=== PATIENT | male | born 1985 | race Caucasian/White ===

== ENCOUNTER 2018-09-18 17:25 | Emergency (ER) | payer OTHER ==
[~2018-09-18] VITALS: Ht 180.3 cm; Wt 86.2 kg
[~2018-09-18 17:25] MED LIST: CEPHALEXIN500 M1 PO; CIPRO500 MG PO; COUMADIN5 M2 PO; DARVOCET A500 51 TAB PO; GENTACIDIN5 ML NAS; MOTRIN800 MG PO; NKHM; OCUFLOX 0.3% 5 M5 ML OPH; TRAMADOL HCL50 MG PO; VOLTAREN 0.1%2.5 ML OPH
[2018-09-18 18:24] LABS: BILIRUBIN NEGATIVE (NEGATIVE); BLOOD NEGATIVE (NEGATIVE); CLARITY CLEAR (CLEAR); COLOR YELLOW (YELLOW); GLUCOSE NEGATIVE (NEGATIVE); KETONE NEGATIVE (NEGATIVE); LEUKO ESTERASE NEGATIVE (NEGATIVE); NITRITE NEGATIVE (NEGATIVE); UROBILINOGEN 0.2 E.U./dl (0.2-1.0)
[2018-09-18 18:39] LABS: BACTERIA 1+; EPITHELIAL CELLS 0-2; MUCOUS TRACE; RBC 0-2 rbc/hpf (0-2)
[2018-09-19] MEDS ORDERED: FLAGYL500 MG PO (14:44)
[2018-09-30] MEDS ORDERED: FLAGYL500 MG PO (01:54)
[2018-10-30] MEDS ORDERED: CIPRO500 MG PO (22:04)
== END 2018-09-18 18:20 | disposition home or self-care (01) ==
LOC: ED 17:25
PROVIDERS: Physician Assistant
DX: Z11.3 Encounter for screening for infections with a predominantly sexual mode of transmission (principal); R36.9 Urethral discharge, unspecified

== ENCOUNTER 2019-04-19 17:55 | Emergency (ER) | payer OTHER ==
[~2019-04-19] VITALS: Ht 180.3 cm; Wt 88.5 kg
[~2019-04-19 17:55] MED LIST changes: +FLAGYL500 MG PO
[2019-04-19 18:34] LABS: BILIRUBIN NEGATIVE (NEGATIVE); BLOOD NEGATIVE (NEGATIVE); CLARITY SL CLOUDY (CLEAR); COLOR YELLOW (YELLOW); GLUCOSE NEGATIVE (NEGATIVE); KETONE 1+ (NEGATIVE); LEUKO ESTERASE NEGATIVE (NEGATIVE); NITRITE NEGATIVE (NEGATIVE); UROBILINOGEN 0.2 E.U./dl (0.2-1.0)
[2019-04-19 18:48] LABS: EPITHELIAL CELLS 0-2; MUCOUS 1+
[2019-04-19] MEDS ORDERED: FLAGYL500 MG PO (19:07)
== END 2019-04-19 19:20 | disposition home or self-care (01) ==
LOC: ED 17:55
PROVIDERS: Physician Assistant
DX: N48.89 Other specified disorders of penis (principal); Z20.2 Contact with and (suspected) exposure to infections with a predominantly sexual mode of transmission; Z79.2 Long term (current) use of antibiotics; Z79.899 Other long term (current) drug therapy

== ENCOUNTER 2019-08-27 18:02 | Emergency (ER) | payer OTHER ==
[~2019-08-27] VITALS: Ht 180.3 cm; Wt 88.5 kg
[2019-08-27 19:11] LABS: COLOR YELLOW (YELLOW)
[2019-08-27 19:12] LABS: BILIRUBIN NEGATIVE (NEGATIVE); BLOOD TRACE-INTACT (NEGATIVE); CLARITY CLEAR (CLEAR); GLUCOSE NEGATIVE (NEGATIVE); KETONE NEGATIVE (NEGATIVE); SPECIFIC GRAVITY 1.015 (1.005-1.030)
[2019-08-27 19:13] LABS: LEUKO ESTERASE TRACE (NEGATIVE); NITRITE NEGATIVE (NEGATIVE); UROBILINOGEN 0.2 E.U./dl (0.2-1.0)
[2019-08-27 19:17] LABS: BACTERIA TRACE
== END 2019-08-27 20:06 | disposition home or self-care (01) ==
LOC: ED 18:02
PROVIDERS: Nurse Practitioner Family
DX: R36.9 Urethral discharge, unspecified (principal); R30.9 Painful micturition, unspecified; Z20.2 Contact with and (suspected) exposure to infections with a predominantly sexual mode of transmission

== ENCOUNTER 2019-09-28 12:23 | Emergency (ER) | payer OTHER ==
[~2019-09-28] VITALS: Ht 180.3 cm; Wt 90.7 kg
[2019-09-28 13:14] LABS: BASO % 0.3 % (0.0-1.0); EOS # 0.1 10*3/uL (0.0-0.4); EOS % 0.9 % (1.0-4.0); HEMATOCRIT 48.9 % (42.0-52.0); LYMPH # 2.1 10*3/uL (1.3-4.4); LYMPH % 14.2 % (27.0-41.0); MEAN CELL VOLUME 95.3 fl (80.0-94.0); MEAN CORPUSCULAR HGB 31.8 pg (27.0-31.0); MEAN CORPUSCULAR HGB CONC 33.3 g/dl (33.0-37.0); MEAN PLATELET VOLUME 9.9 fl (9.6-12.3); MONO # 1.2 10*3/uL (0.1-1.0); MONO % 8.3 % (3.0-9.0); NEUT # 11.2 10*3/uL (2.3-7.9); PLATELET COUNT AUTOMATED 307 10*3/uL (130-400); RED BLOOD COUNT 5.13 10*6/uL (4.50-5.90); RED CELL DISTRI WIDTH 12.4 % (0-14.5); WHITE BLOOD COUNT 14.8 10*3/uL (4.8-10.8)
[2019-09-28 13:25] LABS: ACT PARTIAL THROMBO TIME 23.9 SECONDS (20.0-32.1)
[2019-09-28 13:29] LABS: ALBUMIN 4.1 gm/dl (3.1-4.5); ALKALINE PHOSPHATASE 85 U/L (45-117); BUN 18 mg/dl (7-24); CHLORIDE 105 mmol/L (98-107); CREATININE 1.19 mg/dL (0.70-1.30); LIPASE 95 U/L (73-393); POTASSIUM 3.6 mmol/L (3.5-5.1); SGOT/AST 23 IU/L (3-35); SGPT/ALT 31 U/L (12-78); SODIUM 138 mmol/L (136-145); TOTAL PROTEIN 8.7 gm/dL (6.4-8.2); TROPONIN I < 0.015 ng/ml (<0.045)
[2019-09-28] MEDS ORDERED: LOVENOX100 MG/1 M SC (23:19)
[2019-09-28] MEDS ORDERED: TRAMADOL HCL50 MG PO (23:20)
== END 2019-09-28 14:11 | disposition left against medical advice (07) ==
LOC: ED 12:23
PROVIDERS: Emergency Medicine
DX: I82.401 Acute embolism and thrombosis of unspecified deep veins of right lower extremity (principal); Z79.899 Other long term (current) drug therapy

== ENCOUNTER 2019-09-28 22:34 | Emergency (ER) | payer OTHER ==
[~2019-09-28] VITALS: Ht 180.3 cm; Wt 68.0 kg
[2019-09-28] MEDS ORDERED: LOVENOX100 MG/1 M SC (23:19)
[2019-09-28] MEDS ORDERED: TRAMADOL HCL50 MG PO (23:20)
== END 2019-09-28 23:45 | disposition home or self-care (01) ==
LOC: ED 22:34
DX: I82.401 Acute embolism and thrombosis of unspecified deep veins of right lower extremity (principal); Z79.899 Other long term (current) drug therapy

== ENCOUNTER 2020-03-31 17:42 | Emergency (ER) | payer OTHER ==
[~2020-03-31] VITALS: Ht 180.3 cm; Wt 88.5 kg
[~2020-03-31 17:42] MED LIST changes: +LOVENOX100 MG/1 M SC
[2020-03-31 18:57] LABS: BILIRUBIN Negative (Negative); BLOOD Negative (Negative); CLARITY Clear (Clear); COLOR Yellow (Yellow); GLUCOSE Negative (Negative); KETONE Negative (Negative); LEUKO ESTERASE Negative (Negative); NITRITE Negative (Negative); PH 6.5 (4.5-8.0); UROBILINOGEN 0.2 E.U./dl (0.0-1.0)
[2020-03-31 19:03] LABS: EPITHELIAL CELLS 0-2; RBC 0-2 rbc/hpf (0-2); WBC 0-2 wbc/hpf (0-5)
[2020-03-31 19:04] LABS: BACTERIA 1+; MUCOUS TRACE
== END 2020-03-31 21:51 ==
LOC: ED 17:42
PROVIDERS: Physician Assistant
DX: R30.0 Dysuria (principal); Z79.899 Other long term (current) drug therapy

== ENCOUNTER → 2020-06-07 | Outpatient (CLI) | payer OTHER | END | disposition home or self-care (01) | LOC: CT 05-31 09:00 | PROVIDERS: ATTEND Urology | DX: I87.8 Other specified disorders of veins (principal); I86.2 Pelvic varices; R10.9 Unspecified abdominal pain ==

== ENCOUNTER 2022-04-04 16:19 | Emergency (ER) | payer OTHER ==
[~2022-04-04] VITALS: Wt 95.3 kg
[2022-04-04] MEDS ORDERED: HYDROXYZINE PAM50 MG PO (16:39)
[2022-04-04] MEDS ORDERED: WARFARIN SODIUM1 MG PO (16:39)
[2022-04-04] MEDS ORDERED: BUPROPION HYDR150 M1 PO (16:40)
[2022-04-04 17:12] LABS: INTERNATIONAL NORM RATIO 1.2 (2.0-3.5)
[2022-04-04 17:13] LABS: ALKALINE PHOSPHATASE 134 U/L (45-117); BUN 17 mg/dl (7-24); CHLORIDE 107 mmol/L (98-107); CREATININE 1.03 mg/dL (0.70-1.30); POTASSIUM 3.6 mmol/L (3.5-5.1); SGOT/AST 36 IU/L (3-35); SGPT/ALT 41 U/L (12-78); SODIUM 140 mmol/L (136-145); TOTAL PROTEIN 8.8 gm/dL (6.4-8.2)
[2022-04-04 17:18] LABS: ETHYL ALCOHOL < 3.0 mg/dl (<3)
[2022-04-04 17:33] LABS: BASO # 0.1 10*3/uL (0.0-0.1); BASO % 0.6 % (0.0-1.0); EOS % 0.1 % (1.0-4.0); HEMATOCRIT 53.1 % (42.0-52.0); LYMPH # 1.4 10*3/uL (1.3-4.4); LYMPH % 16.3 % (27.0-41.0); MEAN CELL VOLUME 95.8 fl (80.0-94.0); MEAN CORPUSCULAR HGB 33.2 pg (27.0-31.0); MEAN CORPUSCULAR HGB CONC 34.7 g/dl (33.0-37.0); MONO # 0.7 10*3/uL (0.1-1.0); NEUT # 6.6 10*3/uL (2.3-7.9); NEUT % 74.7 % (47.0-73.0); PLATELET COUNT AUTOMATED 259 10*3/uL (130-400); RED BLOOD COUNT 5.54 10*6/uL (4.50-5.90); RED CELL DISTRI WIDTH 14.5 % (0-14.5); WHITE BLOOD COUNT 8.8 10*3/uL (4.8-10.8)
[2022-04-04 18:26] LABS: URINE AMPHETAMINES < 1000 (1000ng/ml); URINE BARBITURATES < 200 (200ng/ml); URINE BENZODIAZEPINES < 200 (200ng/ml); URINE CANNABINOIDS (THC) < 50 (50ng/ml); URINE COCAINE < 300 (300ng/ml); URINE METHADONE < 300 (300ng/ml); URINE OPIATES < 300 (300ng/ml)
[2022-04-04 18:34] LABS: URINE PHENCYCLIDINE < 25 (25ng/ml)
[2022-04-04] MEDS ORDERED: ATIVAN0.5 MG PO (21:11)
== END 2022-04-04 21:17 | disposition home or self-care (01) ==
LOC: ED 16:19
PROVIDERS: Physician Assistant
DX: R42 Dizziness and giddiness (principal); T43.295A Adverse effect of other antidepressants, initial encounter; R25.1 Tremor, unspecified; R00.0 Tachycardia, unspecified; R06.82 Tachypnea, not elsewhere classified; Z86.718 Personal history of other venous thrombosis and embolism; Z79.899 Other long term (current) drug therapy; Z79.01 Long term (current) use of anticoagulants; Y92.89 Other specified places as the place of occurrence of the external cause

== ENCOUNTER 2022-06-01 14:08 | Emergency (ER) | payer OTHER ==
[~2022-06-01] VITALS: Ht 180.3 cm; Wt 93.0 kg
[~2022-06-01 14:08] MED LIST changes: +ATIVAN0.5 MG PO; +BUPROPION HYDR150 M1 PO; +HYDROXYZINE PAM50 MG PO; +WARFARIN SODIUM1 MG PO
[2022-06-01 17:27] LABS: BASO % 0.3 % (0.0-1.0); HEMATOCRIT 54.2 % (42.0-52.0); LYMPH # 1.5 10*3/uL (1.3-4.4); LYMPH % 12.3 % (27.0-41.0); MEAN CELL VOLUME 94.4 fl (80.0-94.0); MEAN CORPUSCULAR HGB 32.6 pg (27.0-31.0); MEAN CORPUSCULAR HGB CONC 34.5 g/dl (33.0-37.0); MEAN PLATELET VOLUME 9.4 fl (9.6-12.3); MONO # 1.1 10*3/uL (0.1-1.0); MONO % 9.2 % (3.0-9.0); NEUT # 9.2 10*3/uL (2.3-7.9); NEUT % 77.9 % (47.0-73.0); PLATELET COUNT AUTOMATED 299 10*3/uL (130-400); RED BLOOD COUNT 5.74 10*6/uL (4.50-5.90); RED CELL DISTRI WIDTH 14.8 % (0-14.5); WHITE BLOOD COUNT 11.8 10*3/uL (4.8-10.8)
[2022-06-01 17:40] LABS: INTERNATIONAL NORM RATIO 1.1 (2.0-3.5)
[2022-06-01 17:58] LABS: ALKALINE PHOSPHATASE 118 U/L (46-116); BUN 15 mg/dl (9-23); CHLORIDE 100 mmol/L (98-107); CREATININE 0.92 mg/dL (0.70-1.30); LIPASE 31 U/L (12-53); POTASSIUM 3.5 mmol/L (3.4-5.1); SGPT/ALT 54 U/L (10-49); TOTAL PROTEIN 8.7 gm/dL (6.0-8.0)
[2022-06-01 19:12] LABS: BILIRUBIN Negative (Negative); BLOOD 1+ (Negative); CLARITY Clear (Clear); COLOR Yellow (Yellow); GLUCOSE Negative (Negative); KETONE 4+ (Negative); LEUKO ESTERASE Negative (Negative); NITRITE Negative (Negative); PH 5.5 (4.5-8.0); SPECIFIC GRAVITY 1.025 (1.001-1.030)
[2022-06-01 19:19] LABS: URINE AMPHETAMINES Negative (1000ng/ml); URINE BARBITURATES Negative (200ng/ml); URINE BENZODIAZEPINES Negative (200ng/ml); URINE CANNABINOIDS (THC) Negative (50ng/ml); URINE COCAINE Negative (300ng/ml); URINE METHADONE Negative (300ng/ml); URINE OPIATES Negative (300ng/ml); URINE PHENCYCLIDINE Negative (25ng/ml)
[2022-06-01 19:33] LABS: WBC 0-2 wbc/hpf (0-5)
== END 2022-06-01 23:45 | disposition left against medical advice (07) ==
LOC: ED 14:08
PROVIDERS: Physician Assistant
DX: M79.89 Other specified soft tissue disorders (principal)

== ENCOUNTER 2022-06-16 15:01 | Emergency (ER) | payer OTHER ==
[~2022-06-16] VITALS: Wt 92.1 kg
[2022-06-16 16:47] LABS: BILIRUBIN 1+ (Negative); BLOOD Negative (Negative); CLARITY Clear (Clear); COLOR Dark Yellow (Yellow); GLUCOSE Negative (Negative); KETONE Trace (Negative); LEUKO ESTERASE Trace (Negative); NITRITE Negative (Negative); SPECIFIC GRAVITY 1.025 (1.001-1.030)
[2022-06-16 16:59] LABS: BACTERIA 1+; MUCOUS 1+; RBC 0-2 rbc/hpf (0-2)
== END 2022-06-16 15:57 | disposition home or self-care (01) ==
LOC: ED 15:01
PROVIDERS: Nurse Practitioner Family
DX: A64 Unspecified sexually transmitted disease (principal); Z98.890 Other specified postprocedural states

== ENCOUNTER 2023-08-03 17:01 | Inpatient (IN) | payer OTHER ==
[~2023-08-03] VITALS: Ht 180.3 cm; Wt 99.5 kg
[~2023-08-03 17:01] MED LIST changes: +ATIVAN1 MG PO; +LIBRIUM5 MG PO; +ONDANSETRON HYDR4 M1 PO; +PRILOSEC20 M1 PO; +VISTARIL25 MG PO
[2023-08-03 17:07] VITALS: BP 147/100
[2023-08-03] MEDS ORDERED: OMEPRAZOLE40 MG PO (17:12)
[2023-08-03] MEDS ORDERED: SODIUM CHLORIDE 0.9% 1,000 ML IV SCH (17:20)
[2023-08-03] MEDS ORDERED: Thiamine 200 MG/2 ML VIAL IV ONE (17:20)
[2023-08-03] MEDS ORDERED: DIAZEPAM 10 MG/2 ML SYR IV ONE ×3 (17:25→20:45)
[2023-08-03 17:33] LABS: BASO % 0.4 % (0.0-1.0); EOS % 0.2 % (1.0-4.0); HEMATOCRIT 52.4 % (42.0-52.0); LYMPH # 1.2 10*3/uL (1.3-4.4); LYMPH % 12.8 % (27.0-41.0); MEAN CELL VOLUME 93.6 fl (80.0-94.0); MEAN CORPUSCULAR HGB 31.8 pg (27.0-31.0); MEAN PLATELET VOLUME 9.1 fl (9.6-12.3); MONO # 0.9 10*3/uL (0.1-1.0); MONO % 9.5 % (3.0-9.0); NEUT # 7.4 10*3/uL (2.3-7.9); NEUT % 76.9 % (47.0-73.0); PLATELET COUNT AUTOMATED 345 10*3/uL (130-400); RED CELL DISTRI WIDTH 14.4 % (0-14.5); WHITE BLOOD COUNT 9.6 10*3/uL (4.8-10.8)
[2023-08-03] MEDS ORDERED: SODIUM CHLORIDE 0.9% 100 ML BAG IV ONE (17:35)
[2023-08-03] MEDS ORDERED: IOHEXOL 350 MG/ML 100 ML VIAL IV ONE (17:35)
[2023-08-03 17:57] LABS: ALKALINE PHOSPHATASE 141 U/L (46-116); BUN 13 mg/dl (9-23); CHLORIDE 101 mmol/L (98-107); CPK 289 U/L (34-171); LIPASE 35 U/L (12-53); POTASSIUM 3.6 mmol/L (3.4-5.1); SGPT/ALT 237 U/L (5-49)
[2023-08-03 18:05] LABS: ETHYL ALCOHOL < 3.0 mg/dl (<3)
[2023-08-03 18:13] LABS: BILIRUBIN 2+ (Negative); BLOOD 1+ (Negative); CLARITY Cloudy (Clear); COLOR Dark Yellow (Yellow); GLUCOSE Trace (Negative); KETONE 3+ (Negative); LEUKO ESTERASE Trace (Negative); NITRITE Negative (Negative); SPECIFIC GRAVITY >= 1.030 (1.001-1.030)
[2023-08-03 18:20] LABS: URINE AMPHETAMINES Negative (1000ng/ml); URINE BARBITURATES Negative (200ng/ml); URINE BENZODIAZEPINES Negative (200ng/ml); URINE CANNABINOIDS (THC) Negative (50ng/ml); URINE COCAINE Negative (300ng/ml); URINE METHADONE Negative (300ng/ml); URINE OPIATES Negative (300ng/ml); URINE PHENCYCLIDINE Negative (25ng/ml)
[2023-08-03 18:24] LABS: BACTERIA 2+; MUCOUS 3+; YEAST TRACE
[2023-08-03] MEDS ORDERED: Ondansetron Hydrochloride 4 MG/2 ML VIAL IV ONE (19:05)
[2023-08-03] MEDS ORDERED: LORazepam 2 MG TAB PO ONE (22:45)
[2023-08-03] MEDS ORDERED: BISACODYL 5 MG TAB PO PRN (23:00)
[2023-08-03] MEDS ORDERED: ACETAMINOPHEN 325 MG TAB PO PRN (23:00)
[2023-08-03] MEDS ORDERED: Ondansetron Hydrochloride 4 MG/2 ML VIAL IV PRN (23:00)
[2023-08-03] MEDS ORDERED: MULTIVITAMIN CONCENTRATE (IV) 10 ML,Thiamine 100 MG,FOLIC ACID 1 MG in SODIUM CHLORIDE ... IV ONE (23:00)
[2023-08-03] MEDS ORDERED: Acetaminophen/Hydrocodone 5 MG/325 MG TABLET PO PRN (23:00)
[2023-08-03] MEDS ORDERED: Dicyclomine Hydrochloride 20 MG TAB PO PRN (23:00)
[2023-08-03] MEDS ORDERED: Magnesium Hydroxide 30 ML UDC PO PRN (23:00)
[2023-08-03] MEDS ORDERED: hydrOXYzine 50 MG CAP PO PRN (23:00)
[2023-08-03] MEDS ORDERED: METHOCARBAMOL 750 MG TAB PO PRN (23:00)
[2023-08-03 23:08] VITALS: BP 149/104
[2023-08-03] MEDS ORDERED: Labetalol Hydrochloride 20 MG/4 ML SYR IV ONE (23:50)
[2023-08-04] MEDS ORDERED: LORazepam 1 MG TAB PO SCH
[2023-08-04 00:39] VITALS: BP 122/95
[2023-08-04] MEDS ORDERED: SODIUM CHLORIDE 0.9% 10 ML SYR IV SCH (06:00)
[2023-08-04 06:24] LABS: ALKALINE PHOSPHATASE 111 U/L (46-116); BUN 14 mg/dl (9-23); CHLORIDE 105 mmol/L (98-107); POTASSIUM 3.1 mmol/L (3.4-5.1); SGPT/ALT 171 U/L (5-49); TOTAL PROTEIN 7.2 gm/dL (6.0-8.0)
[2023-08-04 06:32] LABS: BASO % 0.4 % (0.0-1.0); EOS % 0.3 % (1.0-4.0); HEMATOCRIT 48.7 % (42.0-52.0); LYMPH # 2.1 10*3/uL (1.3-4.4); LYMPH % 30.1 % (27.0-41.0); MEAN CELL VOLUME 95.7 fl (80.0-94.0); MEAN CORPUSCULAR HGB 31.8 pg (27.0-31.0); MEAN CORPUSCULAR HGB CONC 33.3 g/dl (33.0-37.0); MEAN PLATELET VOLUME 9.5 fl (9.6-12.3); MONO # 1.1 10*3/uL (0.1-1.0); NEUT # 3.8 10*3/uL (2.3-7.9); NEUT % 53.9 % (47.0-73.0); PLATELET COUNT AUTOMATED 279 10*3/uL (130-400); RED BLOOD COUNT 5.09 10*6/uL (4.50-5.90); RED CELL DISTRI WIDTH 14.6 % (0-14.5); WHITE BLOOD COUNT 7.1 10*3/uL (4.8-10.8)
[2023-08-04] MEDS ORDERED: POTASSIUM CHLORIDE 20 MEQ TAB PO ONE (07:40)
[2023-08-04 08:00] VITALS: BP 142/90
[2023-08-04] MEDS ORDERED: Thiamine 200 MG/2 ML VIAL IV ONE (09:29)
[2023-08-04] MEDS ORDERED: MULTIVITAMIN CONCENTRATE (IV) 10 ML VIAL IV ONE (09:29)
[2023-08-04] MEDS ORDERED: FOLIC ACID 50 MG/10 ML VIAL IV ONE (09:29)
[2023-08-04] MEDS ORDERED: FOLIC ACID 1 MG TAB PO SCH (10:00)
[2023-08-04] MEDS ORDERED: Enoxaparin Sodium 40 MG/0.4 ML SYR SC SCH (10:00)
[2023-08-04] MEDS ORDERED: Thiamine 100 MG TAB PO SCH (10:00)
[2023-08-04] MEDS ORDERED: MULTIVITAMIN 1 TAB TAB PO SCH (10:00)
[2023-08-04 12:00] VITALS: BP 135/90
[2023-08-04 16:00] VITALS: BP 190/98
[2023-08-04 17:30] VITALS: BP 138/88
[2023-08-04] MEDS ORDERED: Enoxaparin Sodium 100 MG/ML SYR SC SCH (18:00)
[2023-08-04] MEDS ORDERED: WARFARIN SODIUM 6 MG TAB PO SCH (18:00)
[2023-08-04 20:00] VITALS: BP 139/98
[2023-08-05] VITALS (7 sets, daily range): BP systolic 128–151; BP diastolic 83–109
[2023-08-05] MEDS ORDERED: LORazepam 1 MG TAB PO SCH (02:00)
[2023-08-05] MEDS ORDERED: OMEPRAZOLE 20 MG CAP PO SCH (06:00)
[2023-08-05 06:41] LABS: BASO % 0.5 % (0.0-1.0); EOS # 0.1 10*3/uL (0.0-0.4); EOS % 1.1 % (1.0-4.0); HEMATOCRIT 45.9 % (42.0-52.0); LYMPH # 1.9 10*3/uL (1.3-4.4); LYMPH % 34.2 % (27.0-41.0); MEAN CELL VOLUME 96.8 fl (80.0-94.0); MEAN CORPUSCULAR HGB 32.7 pg (27.0-31.0); MEAN CORPUSCULAR HGB CONC 33.8 g/dl (33.0-37.0); MEAN PLATELET VOLUME 9.3 fl (9.6-12.3); MONO # 0.7 10*3/uL (0.1-1.0); MONO % 11.6 % (3.0-9.0); NEUT % 52.4 % (47.0-73.0); PLATELET COUNT AUTOMATED 226 10*3/uL (130-400); RED BLOOD COUNT 4.74 10*6/uL (4.50-5.90); RED CELL DISTRI WIDTH 14.3 % (0-14.5); WHITE BLOOD COUNT 5.7 10*3/uL (4.8-10.8)
[2023-08-05 07:04] LABS: ALKALINE PHOSPHATASE 109 U/L (46-116); BUN 11 mg/dl (9-23); CHLORIDE 105 mmol/L (98-107); POTASSIUM 3.8 mmol/L (3.4-5.1); SGPT/ALT 156 U/L (5-49); TOTAL PROTEIN 7.1 gm/dL (6.0-8.0)
[2023-08-05] MEDS ORDERED: CEPHALEXIN 500 MG CAP PO SCH (12:00)
[2023-08-06] VITALS: BP 141/98
[2023-08-06] MEDS ORDERED: LORazepam 1 MG TAB PO PRN (04:00)
[2023-08-06 06:15] LABS: BUN 10 mg/dl (9-23); CHLORIDE 104 mmol/L (98-107); POTASSIUM 3.6 mmol/L (3.4-5.1)
[2023-08-06 07:07] LABS: BASO % 0.6 % (0.0-1.0); EOS # 0.1 10*3/uL (0.0-0.4); EOS % 1.7 % (1.0-4.0); LYMPH % 29.5 % (27.0-41.0); MEAN CELL VOLUME 97.2 fl (80.0-94.0); MEAN CORPUSCULAR HGB 31.9 pg (27.0-31.0); MEAN CORPUSCULAR HGB CONC 32.9 g/dl (33.0-37.0); MEAN PLATELET VOLUME 9.8 fl (9.6-12.3); MONO # 0.7 10*3/uL (0.1-1.0); MONO % 10.7 % (3.0-9.0); NEUT % 57.2 % (47.0-73.0); PLATELET COUNT AUTOMATED 258 10*3/uL (130-400); RED BLOOD COUNT 5.04 10*6/uL (4.50-5.90); RED CELL DISTRI WIDTH 14.1 % (0-14.5); WHITE BLOOD COUNT 6.9 10*3/uL (4.8-10.8)
[2023-08-06 08:00] VITALS: BP 160/90
[2023-08-06 12:00] VITALS: BP 150/82
[2023-08-06 16:00] VITALS: BP 143/102; BP 146/71
[2023-08-06 17:00] VITALS: BP 150/88
[2023-08-06 20:00] VITALS: BP 151/107
[2023-08-07] VITALS: BP 142/107
[2023-08-07 06:39] LABS: BUN 13 mg/dl (9-23); CHLORIDE 105 mmol/L (98-107); POTASSIUM 3.8 mmol/L (3.4-5.1)
[2023-08-07 06:46] LABS: BASO % 0.6 % (0.0-1.0); EOS # 0.1 10*3/uL (0.0-0.4); EOS % 1.4 % (1.0-4.0); HEMATOCRIT 46.9 % (42.0-52.0); LYMPH # 2.2 10*3/uL (1.3-4.4); LYMPH % 29.7 % (27.0-41.0); MEAN CELL VOLUME 96.1 fl (80.0-94.0); MEAN CORPUSCULAR HGB CONC 34.3 g/dl (33.0-37.0); MEAN PLATELET VOLUME 9.6 fl (9.6-12.3); MONO # 0.5 10*3/uL (0.1-1.0); MONO % 7.5 % (3.0-9.0); NEUT # 4.4 10*3/uL (2.3-7.9); NEUT % 60.2 % (47.0-73.0); PLATELET COUNT AUTOMATED 235 10*3/uL (130-400); RED BLOOD COUNT 4.88 10*6/uL (4.50-5.90); RED CELL DISTRI WIDTH 14.3 % (0-14.5); WHITE BLOOD COUNT 7.2 10*3/uL (4.8-10.8)
[2023-08-07 08:00] VITALS: BP 148/101
[2023-08-07] MEDS ORDERED: LISINOPRIL 10 MG TAB PO SCH (10:00)
[2023-08-07 12:00] VITALS: BP 143/105
[2023-08-07 16:00] VITALS: BP 145/94
[2023-08-07 20:00] VITALS: BP 134/95
[2023-08-08] VITALS: BP 112/81
[2023-08-08 06:32] LABS: BASO % 0.6 % (0.0-1.0); EOS # 0.1 10*3/uL (0.0-0.4); EOS % 1.7 % (1.0-4.0); HEMATOCRIT 47.6 % (42.0-52.0); LYMPH # 2.1 10*3/uL (1.3-4.4); MEAN CELL VOLUME 95.8 fl (80.0-94.0); MEAN CORPUSCULAR HGB 32.2 pg (27.0-31.0); MEAN CORPUSCULAR HGB CONC 33.6 g/dl (33.0-37.0); MEAN PLATELET VOLUME 9.7 fl (9.6-12.3); MONO # 0.6 10*3/uL (0.1-1.0); MONO % 7.8 % (3.0-9.0); NEUT # 4.2 10*3/uL (2.3-7.9); NEUT % 59.3 % (47.0-73.0); PLATELET COUNT AUTOMATED 246 10*3/uL (130-400); RED BLOOD COUNT 4.97 10*6/uL (4.50-5.90); RED CELL DISTRI WIDTH 14.5 % (0-14.5); WHITE BLOOD COUNT 7.1 10*3/uL (4.8-10.8)
[2023-08-08 06:53] LABS: BUN 13 mg/dl (9-23); CHLORIDE 105 mmol/L (98-107); POTASSIUM 3.9 mmol/L (3.4-5.1)
[2023-08-08 08:00] VITALS: BP 140/93
[2023-08-08] MEDS ORDERED: LISINOPRIL 20 MG TAB PO SCH (10:00)
[2023-08-08 12:00] VITALS: BP 132/89
[2023-08-08 16:00] VITALS: BP 127/83
[2023-08-08] MEDS ORDERED: WARFARIN SODIUM 4 MG TAB PO SCH (18:00)
[2023-08-08 20:00] VITALS: BP 118/78
[2023-08-09] VITALS: BP 111/77
[2023-08-09 08:00] VITALS: BP 124/72
[2023-08-09 12:00] VITALS: BP 138/93
[2023-08-09 16:00] VITALS: BP 151/85
[2023-08-09 20:00] VITALS: BP 121/75
[2023-08-09] MEDS ORDERED: LORazepam 1 MG TAB PO ONE (20:40)
[2023-08-10] VITALS: BP 124/68
[2023-08-10 06:53] LABS: BASO % 0.7 % (0.0-1.0); EOS # 0.2 10*3/uL (0.0-0.4); EOS % 2.6 % (1.0-4.0); HEMATOCRIT 47.4 % (42.0-52.0); LYMPH # 2.2 10*3/uL (1.3-4.4); MEAN CELL VOLUME 96.5 fl (80.0-94.0); MEAN CORPUSCULAR HGB 32.4 pg (27.0-31.0); MEAN CORPUSCULAR HGB CONC 33.5 g/dl (33.0-37.0); MONO # 0.6 10*3/uL (0.1-1.0); NEUT # 2.6 10*3/uL (2.3-7.9); NEUT % 46.2 % (47.0-73.0); PLATELET COUNT AUTOMATED 258 10*3/uL (130-400); RED BLOOD COUNT 4.91 10*6/uL (4.50-5.90); RED CELL DISTRI WIDTH 14.6 % (0-14.5); WHITE BLOOD COUNT 5.7 10*3/uL (4.8-10.8)
[2023-08-10 08:00] VITALS: BP 134/93
[2023-08-10 12:00] VITALS: BP 141/90
[2023-08-10] MEDS ORDERED: LORazepam 1 MG TAB PO PRN (14:45)
[2023-08-10 16:00] VITALS: BP 119/73
[2023-08-10] MEDS ORDERED: WARFARIN SODIUM 10 MG TAB PO SCH (18:00)
[2023-08-10 20:00] VITALS: BP 131/95
[2023-08-11] VITALS: BP 116/54
[2023-08-11 05:38] LABS: BUN 16 mg/dl (9-23); CHLORIDE 104 mmol/L (98-107)
[2023-08-11 06:10] LABS: BASO # 0.1 10*3/uL (0.0-0.1); EOS # 0.2 10*3/uL (0.0-0.4); HEMATOCRIT 46.1 % (42.0-52.0); LYMPH # 2.1 10*3/uL (1.3-4.4); MEAN CELL VOLUME 98.1 fl (80.0-94.0); MEAN CORPUSCULAR HGB 32.6 pg (27.0-31.0); MEAN CORPUSCULAR HGB CONC 33.2 g/dl (33.0-37.0); MONO # 0.6 10*3/uL (0.1-1.0); MONO % 11.8 % (3.0-9.0); NEUT # 2.1 10*3/uL (2.3-7.9); NEUT % 41.6 % (47.0-73.0); PLATELET COUNT AUTOMATED 252 10*3/uL (130-400); RED CELL DISTRI WIDTH 14.6 % (0-14.5); WHITE BLOOD COUNT 5.1 10*3/uL (4.8-10.8)
[2023-08-11 08:00] VITALS: BP 146/91
[2023-08-11] MEDS ORDERED: RIVAROXABAN 20 MG TAB PO ONE (09:50)
[2023-08-11] MEDS ORDERED: LISINOPRIL20 MG PO (09:51)
[2023-08-11] MEDS ORDERED: KEFLEX 500 MG E2 CAP PO (09:51)
[2023-08-11] MEDS ORDERED: XARELTO20 M1 PO (09:51)
[2023-08-11] MEDS ORDERED: CEPHALEXIN 500 MG CAP PO ONE (09:55)
[2023-08-11 11:29] VITALS: BP 136/52
== END 2023-08-11 11:19 | disposition home or self-care (01) | DRG 775 ==
LOC: ED 17:01 → EDHOLD 21:49 → 4E 21:49
PROVIDERS: Internal Medicine; Nurse Practitioner Family; Student in an Organized Health Care Education/Training Program; ADMIT Student in an Organized Health Care Education/Training Program; ATTEND Student in an Organized Health Care Education/Training Program
DX: F10.139 Alcohol abuse with withdrawal, unspecified (principal); I80.8 Phlebitis and thrombophlebitis of other sites; F41.9 Anxiety disorder, unspecified; E87.6 Hypokalemia; K21.9 Gastro-esophageal reflux disease without esophagitis; R74.01 Elevation of levels of liver transaminase levels; R73.9 Hyperglycemia, unspecified; R31.29 Other microscopic hematuria; F43.10 Post-traumatic stress disorder, unspecified; K76.0 Fatty (change of) liver, not elsewhere classified; Y90.0 Blood alcohol level of less than 20 mg/100 ml; Z88.1 Allergy status to other antibiotic agents; Z86.718 Personal history of other venous thrombosis and embolism